=== PATIENT | female | born 1990 | race Caucasian/White ===

== ENCOUNTER 2019-04-28 18:09 | Emergency (ER) | payer BC, MEDICAID ==
[~2019-04-28] VITALS: Ht 162.6 cm; Wt 114.3 kg
[~2019-04-28 18:09] MED LIST: CITA40TA5 PO
[2019-04-28] MEDS ORDERED: IV NORMAL SALINE 1000ML BAG 1,000 ML IV SCH (18:15)
--- NOTE | 2019-04-28 18:27 | PHYS DOC ---
Past Medical History Past Medical History: Anxiety, Bipolar, IBS Additional Past Medical Histor: insulin resistance Past Surgical History: , Tonsillectomy Alcohol Use: None Drug Use: None Adult General Chief Complaint Chief Complaint: ABDOMINAL PAIN HPI HPI 28-year-old female presents to the emergency department with complaints of right flank, right lower quadrant pain. Patient states the pain started approximately couple hours ago. She describes nausea, no vomiting or diarrhea. She denies difficulty with urination or burning with urination. She is currently breast- feeding. Patient's past medical history includes IBS, bipolar, PCOS. Last intake approximately noon. Nothing makes her pain worse, nothing makes her pain better. Pain appears to be more sharp, intermittent. Review of Systems Review of Systems Constitutional: Denies fever or chills [] Respiratory: Denies cough or shortness of breath [] Cardiovascular: No additional information not addressed in HPI [] GI: Right flankd/RLQ abdominal pain, nausea, no vomiting, bloody stools or diarrhea [] : Denies dysuria or hematuria [] Musculoskeletal: Denies back pain or joint pain [] Neurologic: Denies headache, focal weakness or sensory changes [] All other systems were reviewed and found to be within normal limits, except as documented in this note. Current Medications Current Medications Current Medications Medications (Trade) Dose Ordered Sig/[facility] Start Time Stop Time Status Last Admin Dose Admin Morphine Sulfate (Morphine Sulfate) 4 mg 1X ONCE 04/28/19 19:00 04/28/19 19:02 DC 04/28/19 19:10 4 MG Ondansetron HCl (Zofran) 4 mg 1X ONCE 04/28/19 18:30 04/28/19 18:31 DC 04/28/19 18:43 4 MG Sodium Chloride 1,000 ml @ 1,000 mls/hr Q1H 04/28/19 18:15 04/28/19 19:14 DC 04/28/19 18:43 1,000 MLS/HR Allergies Allergies Allergies Coded Allergies Type Severity Reaction Last Updated Verified No Known Drug Allergies 04/17/14 No Physical Exam Physical Exam Constitutional: Well developed, well nourished, mild distress, non-toxic appearance. [] HENT: Normocephalic, atraumatic, bilateral external ears normal, oropharynx moist, no oral exudates, nose normal. [] Eyes: PERRLA, EOMI, conjunctiva normal, no discharge. [] ] Cardiovascular:Heart rate regular rhythm, no murmur [] Lungs & Thorax: Bilateral breath sounds clear to auscultation [] Abdomen: Bowel sounds normal, soft, TTP RLQ, no masses, no pulsatile masses, + rebound tenderness [] Skin: Warm, dry, no erythema, no rash. [] Back: No tenderness, no CVA tenderness. [] Extremities: No tenderness, no edema. [] Neurologic: Alert and oriented X 3, no focal deficits noted. [] Psychologic: Affect normal, judgement normal, mood normal. [] Current Patient Data Vital Signs Vital Signs Date Time Temp Pulse Resp B/P (MAP) Pulse Ox O2 Delivery O2 Flow Rate FiO2 04/28/19 19:10 18 94 Room Air 04/28/19 18:22 98.4 88 124/96 (105) 98.4 Lab Values Laboratory Tests Test 04/28/19 18:20 04/28/19 18:38 04/28/19 18:41 White Blood Count 9.9 x10^3/uL (4.0-11.0) Red Blood Count 4.86 x10^6/uL (3.50-5.40) Hemoglobin 13.5 g/dL (12.0-15.5) Hematocrit 40.0 % (36.0-47.0) Mean Corpuscular Volume 82 fL (79-100) Mean Corpuscular Hemoglobin 28 pg (25-35) Mean Corpuscular Hemoglobin Concent 34 g/dL (31-37) Red Cell Distribution Width 14.5 % (11.5-14.5) Platelet Count 317 x10^3/uL (140-400) Neutrophils (%) (Auto) 52 % (31-73) Lymphocytes (%) (Auto) 39 % (24-48) Monocytes (%) (Auto) 6 % (0-9) Eosinophils (%) (Auto) 1 % (0-3) Basophils (%) (Auto) 1 % (0-3) Neutrophils # (Auto) 5.2 x10^3/uL (1.8-7.7) Lymphocytes # (Auto) 3.9 x10^3/uL (1.0-4.8) Monocytes # (Auto) 0.6 x10^3/uL (0.0-1.1) Eosinophils # (Auto) 0.1 x10^3/uL (0.0-0.7) Basophils # (Auto) 0.1 x10^3/uL (0.0-0.2) Sodium Level 142 mmol/L (136-145) Potassium Level 4.2 mmol/L (3.5-5.1) Chloride Level 104 mmol/L (98-107) Carbon Dioxide Level 24 mmol/L (21-32) Anion Gap 14 (6-14) Blood Urea Nitrogen 13 mg/dL (7-20) Creatinine 0.9 mg/dL (0.6-1.0) Estimated GFR (Cockcroft-Gault) 74.0 BUN/Creatinine Ratio 14 (6-20) Glucose Level 118 mg/dL (70-99) H Calcium Level 9.0 mg/dL (8.5-10.1) Total Bilirubin 0.3 mg/dL (0.2-1.0) Aspartate Amino Transferase (AST) 28 U/L (15-37) Alanine Aminotransferase (ALT) 25 U/L (14-59) Alkaline Phosphatase 74 U/L (46-116) Total Protein 7.8 g/dL (6.4-8.2) Albumin 3.7 g/dL (3.4-5.0) Albumin/Globulin Ratio 0.9 (1.0-1.7) L Urine Collection Type Unknown Urine Color Yellow Urine Clarity Clear Urine pH 6.0 Urine Specific [place] 1.025 Urine Protein >=300 mg/dL (NEG-TRACE) Urine Glucose (UA) Negative mg/dL (NEG) Urine Ketones (Stick) Negative mg/dL (NEG) Urine Blood Large (NEG) Urine Nitrite Negative (NEG) Urine Bilirubin Negative (NEG) Urine Urobilinogen Dipstick 1.0 mg/dL (0.2 mg/dL) Urine Leukocyte Esterase Small (NEG) Urine RBC >40 /HPF (0-2) Urine WBC 1-4 /HPF (0-4) Urine Squamous Epithelial Cells Occ /LPF Urine Bacteria Few /HPF (0-FEW) Urine Mucus Slight /LPF POC Urine HCG, Qualitative Hcg negative (Negative) Laboratory Tests 04/28/19 18:20 Laboratory Tests 04/28/19 18:20 EKG EKG [] Radiology/Procedures Radiology/Procedures [facility] [address] [place] [address] IMAGING REPORT Signed PATIENT: ЕКАТЕРИНА SZYMANSKI ACCOUNT: [id number] : 1990 LOCATION: ER AGE: 28 SEX: F EXAM STATUS: REG ER ORD. PHYSICIAN: OLAF LEIGH MD REASON: right flank pain, stone protocol PROCEDURE: CT ABDOMEN PELVIS WO CONTRAST Examination: CT of the abdomen pelvis without contrast HISTORY: History of right flank pain COMPARISON: None available TECHNIQUE: Axial CT images of the abdomen pelvis were performed without contrast. Coronal and sagittal reformats are performed. Exposure: One or more of the following individualized dose reduction techniques were utilized for this examination: 1. Automated exposure control 2. Adjustment of the mA and/or kV according to patient size 3. Use of iterative reconstruction technique FINDINGS: The bibasilar lungs are clear. No evidence of free air identified in the abdomen. The evaluation of the solid organs is limited due to lack of IV contrast. The evaluation of bowel is limited due to lack of oral contrast. The visualized noncontrasted liver, spleen, adrenals grossly appears unremarkable. Gallbladder is mildly distended. The stomach is mildly distended. The visualized pancreas grossly appears unremarkable. The small bowel is nondilated. The appendix is normal. Feces and gas noted in the colon. Urinary bladder is mildly distended There is 5.5 mm calculus identified the right ureteropelvic junction causing moderate right-sided hydronephrosis. Punctate intrarenal collecting system calculi identified in the bilateral kidneys. No evidence of lytic bony destructive lesion. IMPRESSION: 1. A 5.5 mm calculus identified in the right ureteropelvic junction causing moderate right-sided hydronephrosis. 2. Bilateral nephrolithiasis. Electronically signed by: Dwight Amador MD (04/28/2019 8:30 PM) [facility] DICTATED and SIGNED BY: DWIGHT AMADOR MD DATE: 04/28/192029 [] Course & Med Decision Making Course & Med Decision Making Pertinent Labs and Imaging studies reviewed. (See chart for details) []28-year-old female presents to the emergency department with complaints of right flank, right lower quadrant pain. Patient states the pain started approximately couple hours ago. She describes nausea, no vomiting or diarrhea. She denies difficulty with urination or burning with urination. She is currently breast-feeding. Patient's past medical history includes IBS, bipolar, PCOS. Last intake approximately noon. Nothing makes her pain worse, nothing makes her pain better. Pain appears to be more sharp, intermittent. IVF, Toradol, Zofran provided upon arrival Labs reviewed Evidence of renal stone bilateral and 5mm located right/hydro appreciated Recommend pain medications/flomax/zofran upon discharge Urology follow up - Referral for [facility] ([phone] Dragon Disclaimer Dragon Disclaimer This electronic medical record was generated, in whole or in part, using a voice recognition dictation system. Departure Departure Impression: Primary Impression: Kidney stone on right side Additional Impression: Hydronephrosis Disposition: HOME, SELF-CARE Condition: IMPROVED Referrals: NO PCP (PCP) Patient Instructions: Kidney Stones, [id number] Additional Instructions: Recommend follow up with PCP 3 - 5 days Return to the ER with worsening symptoms, intractable pain, fever, altered mental status Tylenol/Motrin as needed for pain Take medications as directed Discuss with pharmacy regarding flomax Scripts Ondansetron Hcl (ZOFRAN) 4 Mg Tablet 1 TAB PO PRN Q6-8HRS, #12 TAB Prov: OLAF LEIGH MD 04/28/19 Hydrocodone/Apap 5-325 (NORCO 5-325 TABLET) 1 Each Tablet 1-2 TAB PO Q4-6HRS for pain, #14 TAB Prov: OLAF LEIGH MD 04/28/19 Tamsulosin Hcl (FLOMAX) 0.4 Mg Cap.er.24h 1 CAP PO DAILY, #14 CAP 0 Refills Prov: OLAF LEIGH MD 04/28/19 Problem Qualifiers Additional Impression: Hydronephrosis Hydronephrosis type: with ureteropelvic junction obstruction Qualified Codes: Q62.11 - Congenital occlusion of ureteropelvic junction OLAF LEIGH MD Apr 28, 2019 18:27
[2019-04-28] MEDS ORDERED: ONDANSETRON PF 4 MG/2 ML VIAL. IV ONE (18:30)
[2019-04-28 18:37] LABS: BASO # 0.1 x10^3/uL (0.0-0.2); BASO % 1 % (0-3); EOS # 0.1 x10^3/uL (0.0-0.7); EOS % 1 % (0-3); HEMOGLOBIN 13.5 g/dL (12.0-15.5); LYMPH # 3.9 x10^3/uL (1.0-4.8); LYMPH % 39 % (24-48); MEAN CORPUSCULAR HEMOGLOBIN 28 pg (25-35); MEAN CORPUSCULAR HGB CONC 34 g/dL (31-37); MEAN CORPUSCULAR VOLUME 82 fL (79-100); MONO # 0.6 x10^3/uL (0.0-1.1); MONO % 6 % (0-9); NEUT # 5.2 x10^3/uL (1.8-7.7); NEUT % 52 % (31-73); PLATELET COUNT 317 x10^3/uL (140-400); RED BLOOD COUNT 4.86 x10^6/uL (3.50-5.40); RED CELL DISTRIBUTION WIDTH 14.5 % (11.5-14.5); WHITE BLOOD COUNT 9.9 x10^3/uL (4.0-11.0)
[2019-04-28 18:44] LABS: CREATININE 0.9 mg/dL (0.6-1.0); POTASSIUM 4.2 mmol/L (3.5-5.1)
[2019-04-28 18:46] LABS: BILIRUBIN,URINE NEGATIVE (NEG); CLARITY,URINE CLEAR; COLOR,URINE YELLOW; NITRITE,URINE NEGATIVE (NEG); PROTEIN,URINE >=300 mg/dL (NEG-TRACE)
[2019-04-28 18:49] LABS: ALBUMIN 3.7 g/dL (3.4-5.0); ALBUMIN/GLOBULIN RATIO 0.9 (1.0-1.7); TOTAL BILIRUBIN 0.3 mg/dL (0.2-1.0); TOTAL PROTEIN 7.8 g/dL (6.4-8.2)
[2019-04-28 18:54] LABS: BACTERIA,URINE FEW /HPF (0-FEW); RBC,URINE >40 /HPF (0-2); SQUAMOUS EPITHELIAL CELL,UR OCC /LPF
[2019-04-28] MEDS ORDERED: MORPHINE SULFATE 4 MG/ML VIAL. IV ONE (19:00)
[2019-04-28 20:30] VITALS: BP 135/90
--- NOTE | 2019-04-28 20:33 | RAD ---
Examination: CT of the abdomen pelvis without contrast HISTORY: History of right flank pain COMPARISON: None available TECHNIQUE: Axial CT images of the abdomen pelvis were performed without contrast. Coronal and sagittal reformats are performed. Exposure: One or more of the following individualized dose reduction techniques were utilized for this examination: 1. Automated exposure control 2. Adjustment of the mA and/or kV according to patient size 3. Use of iterative reconstruction technique FINDINGS: The bibasilar lungs are clear. No evidence of free air identified in the abdomen. The evaluation of the solid organs is limited due to lack of IV contrast. The evaluation of bowel is limited due to lack of oral contrast. The visualized noncontrasted liver, spleen, adrenals grossly appears unremarkable. Gallbladder is mildly distended. The stomach is mildly distended. The visualized pancreas grossly appears unremarkable. The small bowel is nondilated. The appendix is normal. Feces and gas noted in the colon. Urinary bladder is mildly distended There is 5.5 mm calculus identified the right ureteropelvic junction causing moderate right-sided hydronephrosis. Punctate intrarenal collecting system calculi identified in the bilateral kidneys. No evidence of lytic bony destructive lesion. IMPRESSION: 1. A 5.5 mm calculus identified in the right ureteropelvic junction causing moderate right-sided hydronephrosis. 2. Bilateral nephrolithiasis. Electronically signed by: Dwight Amador MD (04/28/2019 8:30 PM) [facility]
[2019-04-28] MEDS ORDERED: TAMS0.4C97 PO (20:42)
[2019-04-28] MEDS ORDERED: HYDR-3164 PO (20:42)
[2019-04-28] MEDS ORDERED: ONDA4TAB7 PO (20:42)
== END 2019-04-28 20:54 | disposition home or self-care (01) ==
LOC: ER 18:09
DX: N13.2 Hydronephrosis with renal and ureteral calculous obstruction (principal); E83.59 Other disorders of calcium metabolism; Q62.11 Congenital occlusion of ureteropelvic junction; R10.31 Right lower quadrant pain; R11.0 Nausea; F41.9 Anxiety disorder, unspecified; F31.9 Bipolar disorder, unspecified; K58.9 Irritable bowel syndrome, unspecified; Z90.89 Acquired absence of other organs; Z98.890 Other specified postprocedural states; Z79.899 Other long term (current) drug therapy
CPT/HCPCS: 36415; 74176; 80053; 81001; 81025; 85025; 87086; 96374; 96375; 99285; J2270; J2405; J7030

== ENCOUNTER 2019-07-07 12:55 | Emergency (ER) | payer BC ==
[~2019-07-07] VITALS: Ht 162.6 cm; Wt 114.5 kg
[~2019-07-07 12:55] MED LIST changes: +HYDR-3164 PO; +ONDA4TAB7 PO; +TAMS0.4C97 PO
[2019-07-07] MEDS ORDERED: ONDANSETRON PF 4 MG/2 ML VIAL. ONE (13:12)
[2019-07-07] MEDS ORDERED: ONDANSETRON PF 4 MG/2 ML VIAL. IVP ONE (13:30)
--- NOTE | 2019-07-07 13:33 | PHYS DOC ---
Past Medical History Past Medical History: Anxiety, Bipolar, IBS Additional Past Medical Histor: insulin resistance Past Surgical History: , Tonsillectomy Smoking Status: Never Smoker Alcohol Use: None Drug Use: None Adult General Chief Complaint Chief Complaint: FLANK PAIN HPI HPI Patient is a 29 year old female with history of anxiety and bipolar disorder, IBS and previous kidney stone who presents with complaining of right flank pain. Patient complaining of sudden onset of right flank pain since this morning as a constant pain that getting better and worse. Patient complaining of radiation of pain to right side of abdomen and constant nausea and several episodes of vomiting. Patient denies change of urination, fever and chills, diarrhea and constipation, . Patient states she had history of kidney stone in April 2090 and follow-up with a urologist and was told that the stone moved by itself without passing a stone. Review of Systems Review of Systems Constitutional: Denies fever or chills [] Eyes: Denies change in visual acuity, redness, or eye pain [] HENT: Denies nasal congestion or sore throat [] Respiratory: Denies cough or shortness of breath [] Cardiovascular: No additional information not addressed in HPI [] GI: Reports abdominal pain, nausea, vomiting, denies bloody stools or diarrhea [] : Denies dysuria or hematuria [] Musculoskeletal: Denies back pain or joint pain [] Integument: Denies rash or skin lesions [] Neurologic: Denies headache, focal weakness or sensory changes [] Endocrine: Denies polyuria or polydipsia [] All other systems were reviewed and found to be within normal limits, except as documented in this note. Current Medications Current Medications Current Medications Medications (Trade) Dose Ordered Sig/[facility] Start Time Stop Time Status Last Admin Dose Admin Acetaminophen/ Hydrocodone Bitart (Lortab 5/325) 1 tab 1X ONCE 07/07/19 15:15 07/07/19 15:16 DC 07/07/19 15:29 1 TAB Fentanyl Citrate (Fentanyl 2ml Vial) 50 mcg 1X ONCE 07/07/19 14:00 07/07/19 14:01 DC 07/07/19 14:00 50 MCG Ketorolac Tromethamine (Toradol 30mg Vial) 30 mg 1X ONCE 07/07/19 15:15 07/07/19 15:16 DC 07/07/19 15:29 30 MG Ondansetron HCl (Zofran) 4 mg 1X ONCE 07/07/19 14:00 07/07/19 13:55 DC Sodium Chloride 1,000 ml @ 1,000 mls/hr Q1H 07/07/19 14:00 07/07/19 14:59 DC 07/07/19 13:59 1,000 MLS/HR Tamsulosin HCl (Flomax) 0.4 mg 1X ONCE 07/07/19 15:15 07/07/19 15:16 DC 07/07/19 15:29 0.4 MG Allergies Allergies Allergies Coded Allergies Type Severity Reaction Last Updated Verified No Known Drug Allergies 04/17/14 No Physical Exam Physical Exam Constitutional: Well developed, well nourished, moderate distress, non-toxic appearance. [] HENT: Normocephalic, atraumatic. Eyes: PERRLA, EOMI, conjunctiva normal, no discharge. [] Neck: Normal range of motion, no tenderness, supple, no stridor. [] Cardiovascular:Heart rate regular rhythm, no murmur [] Lungs & Thorax: Bilateral breath sounds clear to auscultation [] Abdomen: Bowel sounds normal, soft, no tenderness, no masses, no pulsatile masses. [] Skin: Warm, dry, no erythema, no rash. [] Back: No tenderness, no CVA tenderness. [] Extremities: No tenderness, no cyanosis, no clubbing, ROM intact, no edema. [] Neurologic: Alert and oriented X 3, no focal deficits noted. [] Psychologic: Affect normal, judgement normal, mood normal. [] Current Patient Data Vital Signs Vital Signs Date Time Temp Pulse Resp B/P (MAP) Pulse Ox O2 Delivery O2 Flow Rate FiO2 07/07/19 15:29 15 97 Room Air 07/07/19 15:02 83 155/84 (107) 07/07/19 13:00 97.7 97.7 Lab Values Laboratory Tests Test 07/07/19 13:30 07/07/19 14:24 White Blood Count 11.2 x10^3/uL (4.0-11.0) H Red Blood Count 5.00 x10^6/uL (3.50-5.40) Hemoglobin 13.4 g/dL (12.0-15.5) Hematocrit 40.6 % (36.0-47.0) Mean Corpuscular Volume 81 fL (79-100) Mean Corpuscular Hemoglobin 27 pg (25-35) Mean Corpuscular Hemoglobin Concent 33 g/dL (31-37) Red Cell Distribution Width 13.8 % (11.5-14.5) Platelet Count 250 x10^3/uL (140-400) Neutrophils (%) (Auto) 72 % (31-73) Lymphocytes (%) (Auto) 22 % (24-48) L Monocytes (%) (Auto) 5 % (0-9) Eosinophils (%) (Auto) 1 % (0-3) Basophils (%) (Auto) 1 % (0-3) Neutrophils # (Auto) 8.0 x10^3/uL (1.8-7.7) H Lymphocytes # (Auto) 2.4 x10^3/uL (1.0-4.8) Monocytes # (Auto) 0.5 x10^3/uL (0.0-1.1) Eosinophils # (Auto) 0.1 x10^3/uL (0.0-0.7) Basophils # (Auto) 0.1 x10^3/uL (0.0-0.2) Sodium Level 142 mmol/L (136-145) Potassium Level 4.0 mmol/L (3.5-5.1) Chloride Level 105 mmol/L (98-107) Carbon Dioxide Level 26 mmol/L (21-32) Anion Gap 11 (6-14) Blood Urea Nitrogen 11 mg/dL (7-20) Creatinine 1.0 mg/dL (0.6-1.0) Estimated GFR (Cockcroft-Gault) 65.1 BUN/Creatinine Ratio 11 (6-20) Glucose Level 104 mg/dL (70-99) H Calcium Level 9.0 mg/dL (8.5-10.1) Total Bilirubin 0.3 mg/dL (0.2-1.0) Aspartate Amino Transferase (AST) 16 U/L (15-37) Alanine Aminotransferase (ALT) 27 U/L (14-59) Alkaline Phosphatase 70 U/L (46-116) Total Protein 7.2 g/dL (6.4-8.2) Albumin 3.7 g/dL (3.4-5.0) Albumin/Globulin Ratio 1.1 (1.0-1.7) Serum Test, Qualitative Negative (NEG) Urine Collection Type Unknown Urine Color Yellow Urine Clarity Clear Urine pH 6.5 Urine Specific [place] 1.020 Urine Protein 100 mg/dL (NEG-TRACE) Urine Glucose (UA) Negative mg/dL (NEG) Urine Ketones (Stick) Negative mg/dL (NEG) Urine Blood Large (NEG) Urine Nitrite Negative (NEG) Urine Bilirubin Negative (NEG) Urine Urobilinogen Dipstick 0.2 mg/dL (0.2 mg/dL) Urine Leukocyte Esterase Negative (NEG) Urine RBC Tntc /HPF (0-2) Urine WBC Rare /HPF (0-4) Urine Squamous Epithelial Cells Few /LPF Urine Bacteria Few /HPF (0-FEW) Urine Mucus Slight /LPF Laboratory Tests 07/07/19 13:30 Laboratory Tests 07/07/19 13:30 EKG EKG [] Radiology/Procedures Radiology/Procedures [facility] [address] [place] [address] IMAGING REPORT Signed PATIENT: ЕКАТЕРИНА SZYMANSKI ACCOUNT: [id number] : 1990 LOCATION: ER AGE: 29 SEX: F EXAM STATUS: REG ER ORD. PHYSICIAN: HEATHER RIVERS MD REASON: Right flank pain, history of kidney stone PROCEDURE: CT ABDOMEN PELVIS WO CONTRAST Exam performed: CT scan of the abdomen and pelvis without contrast. Clinical Indication: Right flank pain. Date of Service: 07/07/2019 comparison: CT abdomen and pelvis from 04/28/2019 Technique: Contiguous helical acquisitions are obtained through the abdomen and pelvis without IV contrast. Sagittal and coronal reformatted images are obtained and reviewed. CT abdomen and pelvis findings: 5.5 mm calculus redemonstrated in the right ureteropelvic junction in a similar location as previously causing moderate right hydroureteronephrosis. There are tiny nonobstructing bilateral renal calculi. The lung bases are essentially clear. Visualized heart is normal. Lack of IV contrast limits evaluation of abdominal viscera, however the liver, gallbladder, spleen and pancreas are normal. Both adrenal glands and bilateral kidneys are normal in size. Aorta is normal in caliber without aneurysm. The small and large bowel loops are nondilated and unremarkable. The visualized portion of the appendix is unremarkable . Distal ureters are nondilated. Urinary bladder is decompressed and thick walled. [Uterus is anteverted. No adnexal masses seen.] No free or focal fluid collections are identified. Impression: Unchanged 5.5 mm calculus in the right ureteropelvic junction causing moderate right hydroureteronephrosis. Nonobstructing bilateral renal calculi PQRS Compliance Statement: One or more of the following individualized dose reduction techniques were utilized for this examination: 1. Automated exposure control 2. Adjustment of the mA and/or kV according to patient size 3. Use of iterative reconstruction technique Electronically signed by: Genet Coon MD (07/07/2019 2:43 PM) [id number] DICTATED and SIGNED BY: GENET COON MD DATE: 07/07/19 1443 Course & Med Decision Making Course & Med Decision Making Pertinent Labs and Imaging studies reviewed. (See chart for details) Evaluation of patient in the ER showed 29-year-old female patient complaining of right flank pain for few hours and nausea and vomiting. Patient had few episodes of vomiting while she was in ER. Patient treated with IV fluids, Zofran, fentanyl, Toradol with improvement of her condition. CT of abdomen and pelvis reported 5.5 mm right UP junction without change from the previous CT. Patient already seen by urologist and was advised to follow-up with her urologist and strain all of her urine. I've spoken with the patient and/or caregivers. I've explained the patient's condition, diagnosis and treatment plan based on information available to me at this time. I've answered the patient's and/or caregivers questions and addressed any concerns. The patient and/or caregivers have a good understanding the patient's diagnosis, condition and treatment plan as can be expected at this point. Vital signs have been stabilized. The patient's condition is stable for discharge from the emergency department. The patient will pursue further outpatient evaluation with her primary care provider or other designated consulting physician as outlined in the discharge instructions. Patient and/or caregivers are agreeable to this plan of care and follow-up instructions have been explained in detail. The patient and/or caregivers have received these instructions in written format and expressed u nderstanding of these discharge instructions. The patient and her caregivers are aware that if any significant change in condition or worsening of symptoms should prompt him to immediately return to this of the closest emergency department. If an emergent department is not readily available I would encourage him to call 911. Vicky Disclaimer Vicky Disclaimer This electronic medical record was generated, in whole or in part, using a voice recognition dictation system. Departure Departure Impression: Primary Impression: Renal colic on right side Additional Impressions: Ureterolithiasis Nephrolithiasis Disposition: HOME, SELF-CARE (153) Condition: IMPROVED Referrals: UNKNOWN PCP NAME (PCP) Patient Instructions: Diet for Kidney Stones, Kidney Stones Additional Instructions: Drink plenty of liquids Follow-up with your urology physician in 2-3 days Return to ER if not getting better Strain all of your urine Thank you for visiting [facility]. We appreciate you trusting us with your care. If any additional problems come up don't hesitate to return to visit us. Please follow up with your primary care provider so they can plan additional care if needed and know about the problem that you had. If symptoms worsen come back to the Emergency Department. Any concerning symptoms that start such as chest pain, shortness of air, weakness or numbness on one side of the body, running high fevers or any other concerning symptoms return to the ER. Scripts Ondansetron Hcl (ZOFRAN) 4 Mg Tablet 1 TAB PO PRN Q6-8HRS for nausea, #12 TAB Prov: HEATHER RIVERS MD 07/07/19 Hydrocodone/Apap 5-325 (NORCO 5-325 TABLET) 1 Each Tablet 1 TAB PO PRN Q6HRS PRN for PAIN, #10 TAB 0 Refills Prov: HEATHER RIVERS MD 07/07/19 Ibuprofen (IBUPROFEN) 800 Mg Tablet 800 MG PO PRN Q8HRS PRN for INFLAMMATION, #20 TAB Prov: HEATHER RIVERS MD 07/07/19 Tamsulosin Hcl (FLOMAX) 0.4 Mg Cap.er.24h 1 CAP PO DAILY, #14 CAP 0 Refills Prov: HEATHER RIVERS MD 07/07/19 Problem Qualifiers HEATHER RIVERS MD Jul 07, 2019 13:33
[2019-07-07 13:40] LABS: BASO # 0.1 x10^3/uL (0.0-0.2); BASO % 1 % (0-3); EOS # 0.1 x10^3/uL (0.0-0.7); EOS % 1 % (0-3); HEMATOCRIT 40.6 % (36.0-47.0); HEMOGLOBIN 13.4 g/dL (12.0-15.5); LYMPH # 2.4 x10^3/uL (1.0-4.8); LYMPH % 22 % (24-48); MEAN CORPUSCULAR HEMOGLOBIN 27 pg (25-35); MEAN CORPUSCULAR HGB CONC 33 g/dL (31-37); MEAN CORPUSCULAR VOLUME 81 fL (79-100); MONO # 0.5 x10^3/uL (0.0-1.1); MONO % 5 % (0-9); NEUT % 72 % (31-73); PLATELET COUNT 250 x10^3/uL (140-400); RED CELL DISTRIBUTION WIDTH 13.8 % (11.5-14.5); WHITE BLOOD COUNT 11.2 x10^3/uL (4.0-11.0)
[2019-07-07 13:54] LABS: GFR 65.1
[2019-07-07] MEDS ORDERED: ONDANSETRON PF 4 MG/2 ML VIAL. IV ONE (14:00)
[2019-07-07] MEDS ORDERED: IV NORMAL SALINE 1000ML BAG 1,000 ML IV SCH (14:00)
[2019-07-07] MEDS ORDERED: fentaNYL PF VIAL 100 MCG/2 ML VIAL IV ONE (14:00)
[2019-07-07 14:02] LABS: ALBUMIN 3.7 g/dL (3.4-5.0); ALBUMIN/GLOBULIN RATIO 1.1 (1.0-1.7); TOTAL BILIRUBIN 0.3 mg/dL (0.2-1.0); TOTAL PROTEIN 7.2 g/dL (6.4-8.2)
[2019-07-07 14:17] LABS: PREG TEST PT QUAL NEGATIVE (NEG)
[2019-07-07 14:45] LABS: BILIRUBIN,URINE NEGATIVE (NEG); CLARITY,URINE CLEAR; COLOR,URINE YELLOW; NITRITE,URINE NEGATIVE (NEG); PH,URINE 6.5; PROTEIN,URINE 100 mg/dL (NEG-TRACE); UROBILINOGEN,URINE 0.2 mg/dL (0.2 mg/dL)
--- NOTE | 2019-07-07 14:46 | RAD ---
Exam performed: CT scan of the abdomen and pelvis without contrast. Clinical Indication: Right flank pain. Date of Service: 07/07/2019 comparison: CT abdomen and pelvis from 04/28/2019 Technique: Contiguous helical acquisitions are obtained through the abdomen and pelvis without IV contrast. Sagittal and coronal reformatted images are obtained and reviewed. CT abdomen and pelvis findings: 5.5 mm calculus redemonstrated in the right ureteropelvic junction in a similar location as previously causing moderate right hydroureteronephrosis. There are tiny nonobstructing bilateral renal calculi. The lung bases are essentially clear. Visualized heart is normal. Lack of IV contrast limits evaluation of abdominal viscera, however the liver, gallbladder, spleen and pancreas are normal. Both adrenal glands and bilateral kidneys are normal in size. Aorta is normal in caliber without aneurysm. The small and large bowel loops are nondilated and unremarkable. The visualized portion of the appendix is unremarkable . Distal ureters are nondilated. Urinary bladder is decompressed and thick walled. [Uterus is anteverted. No adnexal masses seen.] No free or focal fluid collections are identified. Impression: Unchanged 5.5 mm calculus in the right ureteropelvic junction causing moderate right hydroureteronephrosis. Nonobstructing bilateral renal calculi PQRS Compliance Statement: One or more of the following individualized dose reduction techniques were utilized for this examination: 1. Automated exposure control 2. Adjustment of the mA and/or kV according to patient size 3. Use of iterative reconstruction technique Electronically signed by: Genet Coon MD (07/07/2019 2:43 PM) [id number]
[2019-07-07 15:02] VITALS: BP 155/84
[2019-07-07 15:02] LABS: BACTERIA,URINE FEW /HPF (0-FEW); RBC,URINE TNTC /HPF (0-2); SQUAMOUS EPITHELIAL CELL,UR FEW /LPF; WBC,URINE RARE /HPF (0-4)
[2019-07-07] MEDS ORDERED: KETOROLAC 30 MG/ML VIAL. IVP ONE (15:15)
[2019-07-07] MEDS ORDERED: TAMSULOSIN 0.4 MG CAP.ER.24H. PO ONE (15:15)
[2019-07-07] MEDS ORDERED: HYDROcodone/APAP 5/325MG 1 TAB TABLET PO ONE (15:15)
[2019-07-07] MEDS ORDERED: HYDR-3164 PO (15:44)
[2019-07-07] MEDS ORDERED: IBUP-1060 PO (15:44)
[2019-07-07] MEDS ORDERED: ONDA4TAB7 PO (15:44)
[2019-07-07] MEDS ORDERED: TAMS0.4C97 PO (15:44)
== END 2019-07-07 16:05 | disposition home or self-care (01) ==
LOC: ER 12:55
DX: N13.2 Hydronephrosis with renal and ureteral calculous obstruction (principal); R10.9 Unspecified abdominal pain; R11.2 Nausea with vomiting, unspecified; F41.9 Anxiety disorder, unspecified; F31.9 Bipolar disorder, unspecified; K58.9 Irritable bowel syndrome, unspecified; Z90.89 Acquired absence of other organs; Z98.890 Other specified postprocedural states; Z79.899 Other long term (current) drug therapy
CPT/HCPCS: 36415; 74176; 80053; 81001; 84703; 85025; 96361; 96374; 96375; 99284; J1885; J2405; J3010; J7030